=== PATIENT | female | born 1945 | race Caucasian/White ===

== ENCOUNTER 2016-04-12 11:21 | Day surgery (SDC) | payer MEDICARE, OTHER ==
--- NOTE | 2016-04-10 16:09 | HP ---
DATE OF SURGERY: 04/12/2016 HISTORY OF PRESENT ILLNESS: The patient is a 70 year-old last colonoscopy 18 years ago. No bloody stools. She had some pain all over, nausea four weeks ago and now better. Family history mother had colon cancer. PAST MEDICAL HISTORY: She denies any chronic illnesses. PAST SURGICAL HISTORY: Tonsillectomy. Cholecystectomy. MEDICATIONS: Supplements otherwise no other regular medication. ALLERGIES: NKDA. FAMILY HISTORY: Mother had colon cancer, heart disease. SOCIAL HISTORY: No smoking or alcohol abuse. REVIEW OF SYSTEMS: Ten systems reviewed. No chest pain or palpitations other systems negative or noncontributory as above and per preadmission questionnaire. PHYSICAL EXAMINATION: GENERAL: No acute distress. HEENT: Sclerae nonicteric. NECK: No JVD. CHEST: Equal excursion, nonlabored breathing. CVS: Regular rate and rhythm. ABDOMEN: Soft, nontender. No peritoneal signs. EXTREMITIES: No significant edema. NEURO: Alert, moving extremities symmetrically. No gross motor deficits noted. RECTAL: Deferred timed to endoscopy exam. IMPRESSION: Need for follow up screening colonoscopy. I feel she is a candidate. She was shown the risk sheet, explained the procedure in detail but not limited to bleeding or infection, small risk of bowel injury or perforation possibly requiring open procedure, small risk of missed or nondiagnosis or incomplete exam possibly requiring barium enema, other studies or procedures, general risk of anesthesia or sedation, risk of bowel prep, postoperative risk of nausea, vomiting or cramping but not limited to. She understands and agrees to the planned procedure and will proceed with outpatient screening colonoscopy.
[~2016-04-12 11:21] MED LIST: DIPRIVAN 200 MG/20 ML IV ONE; Lactated Ringers 1,000 ML IV ONE; Lactated Ringers 1,000 ML IV SCH; SUBLIMAZE 100 MCG/2 ML IV ONE; Versed 2 MG/2 ML Injection IV ONE
[2016-04-12 14:25] VITALS: O2SAT 95
[2016-04-12 14:55] VITALS: BP 151/78; PULSE 61
--- NOTE | 2016-04-13 08:43 | OP ---
SURGERY DATE/TIME: 04/12/2016 1319 PREOPERATIVE DIAGNOSIS: Need for screening colonoscopy, last colonoscopy 18 years ago. Family history of colon cancer. POSTOPERATIVE DIAGNOSES: 1) Very, very tortuous colon. 2) Somewhat poor prep in areas. 3) Small internal and external hemorrhoids. 4) Few diverticula. PROCEDURE: Colonoscopy to cecum. SURGEON: Dr. Wilbert Paul. ANESTHESIA: MAC. ESTIMATED BLOOD LOSS: Minimal. INDICATIONS: As noted above. Risks and benefits explained in detail but not limited to and consent obtained. DESCRIPTION OF PROCEDURE AND FINDINGS: The patient is taken to the endoscopy room. She did not have any further questions. MAC anesthesia induced. After official time out and no disagreement with the planned procedure, a digital rectal exam did not reveal any rectal masses. She did have some small internal and external hemorrhoids. Video colonoscope inserted and passed up through the somewhat poorly prepped colon with areas of liquidy semi-solid stool in areas. Slowly and carefully position change on her back and requiring two to three people with external pressure on the abdomen. The scope was finally passed down transverse colon and descending colon finally to the cecum. Again the prep did limit the exam for small lesions. Suction irrigated as well as possible but did limit the exam for potential small lesions. The scope slowly and carefully withdrawn. There were no signs of any large polyps, masses or obstructing lesions. She had few diverticula. She had some small internal and external hemorrhoids otherwise no signs of any large polyps, masses or obstructing lesions. Again the prep did limit the exam. Given her family history of colon cancer I recommend follow up colonoscopy in five years unless she has any symptoms.
== END 2016-04-12 14:59 | disposition home or self-care (01) ==
LOC: SDC 11:21
PROVIDERS: ATTEND Surgery
PROC: 0DJD8ZZ Inspection of Lower Intestinal Tract, Via Natural or Artificial Opening Endoscopic (ICD-10-PCS; principal; 2016-04-12)
DX: Z12.11 Encounter for screening for malignant neoplasm of colon (principal); Z80.0 Family history of malignant neoplasm of digestive organs; K64.4 Residual hemorrhoidal skin tags; K64.8 Other hemorrhoids; K57.90 Diverticulosis of intestine, part unspecified, without perforation or abscess without bleeding
CPT/HCPCS: 00810; J2250; J2704; J3010

== ENCOUNTER 2017-10-28 05:30 | Emergency (ER) | payer MEDICARE, OTHER ==
[2017-10-28] MEDS ORDERED: Sodium Chloride 0.9% 1000 ML 1,000 ML IV STA (06:03)
[2017-10-28] MEDS ORDERED: TORAdol 30 mg Injection IV ONE (06:03)
[2017-10-28] MEDS ORDERED: Hydromorphone 1 mg/ml Ampule IV ONE (06:03)
[2017-10-28] MEDS ORDERED: Phenergan 25 MG INJ IV ONE (06:03)
[2017-10-28] MEDS ORDERED: Flomax 0.4 MG PO STA (06:06)
--- NOTE | 2017-10-28 06:07 | ERPHSYRPT ---
- History of Present Illness Time Seen by Provider: 10/28/17 05:59 Historian: patient Exam Limitations: no limitations Patient Subjective Stated Complaint: pt is alert and oriented. pt is ambulatory with a steady gait. pt states that she began have nausea, vomiting, diarrhea at 0000. pt states that she had upper abdomenal pain last night and began vomiting at 0000 today. she then stopped around 0200 and began having abd pain on her LLQ in her lower back on the left side. bowel sounds present x4. abd soft, tender with palpatation. pt took imodium and phenergan at 0200 Triage Nursing Assessment: see above Physician History: The patient is a 71-year-old female with her complaining of left flank and left lower quadrant abdominal pain that began about 5 hours ago. She is been nauseated, vomited, and has diarrhea. She denies fever or chills. Her past medical history is significant for diverticulitis and kidney stones. Timing/Duration: today, hour(s) (5), sudden, worse Activities at Onset: none Quality: sharpness Abdominal Pain Onset Location: LLQ Pain Radiation: flank (left) Severity of Pain-Max: severe Severity of Pain-Current: severe Modifying Factors: Improves With: nothing Associated Symptoms: nausea, vomiting Previous symptoms: same symptoms as today Allergies/Adverse Reactions: No Known Drug Allergies Allergy (Verified 04/12/16 11:41) Home Medications: Cider Vinegar [Apple Cider Vinegar] 500 mg PO DAILY 04/06/16 [History] Enzymes,Digestive [Digestive Enzymes] 2 tab PO DAILY 04/06/16 [History] Ibuprofen 200 mg [Motrin 200 mg] 200 mg PO HS 04/06/16 [History] Multivitamin [Multi-Vitamin Daily] 1 ea PO DAILY 04/06/16 [History] Hx Tetanus, Diphtheria Vaccination/Date Given: No Hx Influenza Vaccination/Date Given: No Hx Pneumococcal Vaccination/Date Given: No Immunizations Up to Date: Yes - Review of Systems Constitutional: No Fever, No Chills Eyes: No Symptoms Ears, Nose, & Throat: No Symptoms Respiratory: No Cough, No Dyspnea Cardiac: No Chest Pain, No Edema, No Syncope Abdominal/Gastrointestinal: Abdominal Pain, Nausea, Vomiting, Diarrhea Genitourinary Symptoms: No Dysuria Musculoskeletal: No Back Pain, No Neck Pain Skin: No Rash Neurological: No Dizziness, No Focal Weakness, No Sensory Changes Psychological: No Symptoms Endocrine: No Symptoms Hematologic/Lymphatic: No Symptoms Immunological/Allergic: No Symptoms All Other Systems: Reviewed and Negative - Past Medical History Pertinent Past Medical History: Yes Neurological History: No Pertinent History ENT History: No Pertinent History Cardiac History: No Pertinent History Respiratory History: No Pertinent History Endocrine Medical History: No Pertinent History Musculoskeletal History: No Pertinent History GI Medical History: Diverticulitis History: Other Psycho-Social History: No Pertinent History Female Reproductive Disorders: No Pertinent History Other Medical History: kidney stones - Past Surgical History Past Surgical History: Yes Neuro Surgical History: No Pertinent History Cardiac: No Pertinent History Respiratory: No Pertinent History Gastrointestinal: Cholecystectomy Genitourinary: No Pertinent History Musculoskeletal: No Pertinent History Female Surgical History: No Pertinent History - Social History Smoking Status: Never smoker Exposure to second hand smoke: No Drug Use: none Patient Lives Alone: No - Female History Hx Now: No - Nursing Vital Signs Nursing Vital Signs: Initial Vital Signs Temperature 97.9 F 10/28/17 05:31 Pulse Rate 77 10/28/17 05:31 Respiratory Rate 22 10/28/17 05:31 Blood Pressure 134/85 10/28/17 05:31 O2 Sat by Pulse Oximetry 100 10/28/17 05:31 Pain Scale Pain Intensity 10 - Physical Exam General Appearance: moderate distress Eye Exam: PERRL/EOMI, eyes nml inspection Ears, Nose, Throat Exam: normal ENT inspection, pharynx normal, moist mucous membranes Neck Exam: normal inspection, non-tender, supple, full range of motion Respiratory Exam: normal breath sounds, lungs clear, No respiratory distress Cardiovascular Exam: regular rate/rhythm, normal heart sounds Gastrointestinal/Abdomen Exam: tenderness (LLQ) Pelvic Exam: not done Rectal Exam: not done Back Exam: normal inspection, normal range of motion, No CVA tenderness, No vertebral tenderness Extremity Exam: normal inspection, normal range of motion, pelvis stable Neurologic Exam: alert, oriented x 3, cooperative, normal mood/affect, nml cerebellar function, sensation nml, No motor deficits Skin Exam: normal color, warm, dry SpO2 Interpretation: normal SpO2: 100 Oxygen Delivery: Room Air - CT Exams Abdomen/Pelvis CT Interpretation: Other (3 x 5 mm calculus in left mid ureter with moderate hydronephrosis interpreted by me.) Ordered Tests: Active Orders 24 hr Category Date Time Status Clean Catch Urine Specimen STAT Care 10/28/17 06:03 Active IV Insertion STAT Care 10/28/17 06:03 Active ABDOMEN AND PELVIS W/0 CONTRAS [CT] Stat Exams 10/28/17 06:31 Taken CBC W DIFF Stat Lab 10/28/17 06:00 Completed CMP Stat Lab 10/28/17 06:00 Completed LIPASE Stat Lab 10/28/17 06:00 Completed Lactic Acid Stat Lab 10/28/17 06:03 Ordered Manual Differential NC Stat Lab 10/28/17 06:00 Completed UA W/RFX UR CULTURE Stat Lab 10/28/17 06:03 Uncollected Medication Summary Generic Name Dose Route Start Last Admin Trade Name Freq PRN Reason Stop Dose Admin Sodium Chloride 1,000 mls @ 999 mls/hr 10/28/17 06:03 10/28/17 06:28 Sodium Chloride 0.9% 1000 Ml IV 10/28/17 07:03 999 mls/hr .Q1H1M STA Administration Discontinued Medications Generic Name Dose Route Start Last Admin Trade Name Freq PRN Reason Stop Dose Admin Hydromorphone HCl 1 mg 10/28/17 06:03 10/28/17 06:27 Hydromorphone 1 Mg/Ml Ampule IV 10/28/17 06:04 1 mg STAT ONE Administration Hydromorphone HCl Confirm 10/28/17 06:10 Hydromorphone 1 Mg/Ml Ampule Administered 10/28/17 06:11 Dose 1 mg .ROUTE .STK-MED ONE Sodium Chloride Confirm 10/28/17 06:10 Sodium Chloride 0.9% 1000 Ml Administered 10/28/17 06:11 Dose 1,000 mls @ ud .ROUTE .STK-MED ONE Ketorolac Tromethamine 30 mg 10/28/17 06:03 10/28/17 06:27 Toradol 30 Mg Injection IV 10/28/17 06:04 30 mg STAT ONE Administration Ketorolac Tromethamine Confirm 10/28/17 06:10 Toradol 30 Mg Injection Administered 10/28/17 06:11 Dose 30 mg .ROUTE .STK-MED ONE Promethazine HCl 25 mg 10/28/17 06:03 10/28/17 06:27 Phenergan 25 Mg Inj IV 10/28/17 06:04 25 mg STAT ONE Administration Promethazine HCl Confirm 10/28/17 06:10 Phenergan 25 Mg Inj Administered 10/28/17 06:11 Dose 25 mg .ROUTE .STK-MED ONE Tamsulosin HCl 0.4 mg 10/28/17 06:06 10/28/17 06:28 Flomax 0.4 Mg PO 10/28/17 06:07 0.4 mg DAILY STA Administration Tamsulosin HCl Confirm 10/28/17 06:10 Flomax 0.4 Mg Administered 10/28/17 06:11 Dose 0.4 mg .ROUTE .STK-MED ONE Lab/Rad Data: Laboratory Result Diagrams 10/28/17 06:00 10/28/17 06:00 Laboratory Results 10/28/17 10/28/17 Range/Units 06:00 06:00 WBC 13.9 H (4.0-10.5) K/mm3 RBC 5.05 (4.1-5.4) M/mm3 Hgb 15.7 (12.0-16.0) gm/dl Hct 47.1 H (35-47) % MCV 93.3 (78-100) fl MCH 31.1 (26-32) pg MCHC 33.3 (32-36) g/dl RDW 13.3 (11.5-14.0) % Plt Count 223 (150-450) K/mm3 MPV 11.0 H (6-9.5) fl Segmented Neutrophils 80 H (36.0-66.0) % Band Neutrophils 6 H (0.0-2.0) % Lymphocytes (Manual) 9 L (24-44) % Monocytes (Manual) 3 (0.0-12.0) % Eosinophils (Manual) 1 (0.00-3.0) % Basophils (Manual) 1 (0.0-1.0) % Platelet Estimate NORMAL (NORMAL) RBC Morphology NORMAL Sodium 143 (137-145) mmol/L Potassium 4.2 (3.5-5.1) mmol/L Chloride 105 (98-107) mmol/L Carbon Dioxide 26 (22-30) mmol/L Anion Gap 15.5 H (5-15) MEQ/L BUN 28 H (7-17) mg/dL Creatinine 0.85 (0.52-1.04) mg/dL Estimated GFR > 60.0 ML/MIN Glucose 148 H (74-106) mg/dL Calcium 10.2 (8.4-10.2) mg/dL Total Bilirubin 0.50 (0.2-1.3) mg/dL AST 33 (14-36) U/L ALT 27 (0-35) U/L Alkaline Phosphatase 90 (38-126) U/L Serum Total Protein 7.3 (6.3-8.2) g/dL Albumin 4.5 (3.5-5.0) g/dL Lipase 45 (23-300) U/L - Progress Progress: improved Counseled pt/family regarding: diagnosis, need for follow-up, rad results - Departure Time of Disposition: 07:01 Departure Disposition: Home Clinical Impression: Ureterolithiasis Condition: Stable Critical Care Time: No Referrals: ALNO DAWKINS [Primary Care Provider] - Additional Instructions: You have a kidney stone that you are passing. The CT scan showed it was midway between your left kidney and the bladder. You were given Flomax 0.4 mg orally and Dilaudid 1 mg, Phenergan 25 mg, and fluids by IV in the ER. Take Kent one tablet every 4-6 hours as needed for pain. Stay well hydrated. Strain your urine to collect the stone. Follow-up with your primary medical doctor after he collect the stone or earlier if needed. Prescriptions: Hydrocodone/APAP 5/325 [Kent 5/325 mg] 1 each PO Q4-6HPRN PRN #12 tablet MDD 6 PRN Reason: Pain
[2017-10-28] MEDS ORDERED: TORAdol 30 mg Injection ONE (06:10)
[2017-10-28] MEDS ORDERED: Phenergan 25 MG INJ ONE (06:10)
[2017-10-28] MEDS ORDERED: Hydromorphone 1 mg/ml Ampule ONE (06:10)
[2017-10-28] MEDS ORDERED: Flomax 0.4 MG ONE (06:10)
[2017-10-28] MEDS ORDERED: Sodium Chloride 0.9% 1000 ML 1,000 ML ONE (06:10)
[2017-10-28 06:30] LABS: Hematocrit 47.1 % (35-47); Hemoglobin 15.7 gm/dl (12.0-16.0); Mean Cell Volume 93.3 fl (78-100); Mean Corpuscular Hemoglobin 31.1 pg (26-32); Mean Corpuscular Hgb Concent. 33.3 g/dl (32-36); Platelet Count 223 K/mm3 (150-450); Red Blood Count 5.05 M/mm3 (4.1-5.4); Red Cell Distribution Width 13.3 % (11.5-14.0); White Blood Count 13.9 K/mm3 (4.0-10.5)
[2017-10-28 06:38] LABS: ALBUMIN 4.5 g/dL (3.5-5.0); ALKALINE PHOSPHATASE 90 U/L (38-126); ANION GAP 15.5 MEQ/L (5-15); BLOOD UREA NITROGEN 28 mg/dL (7-17); CHLORIDE 105 mmol/L (98-107); Calcium 10.2 mg/dL (8.4-10.2); Carbon Dioxide 26 mmol/L (22-30); Creatinine 1 0.85 mg/dL (0.52-1.04); Glucose 148 mg/dL (74-106); LIPASE 45 U/L (23-300); Potassium 4.2 mmol/L (3.5-5.1); SGOT/AST 33 U/L (14-36); SGPT/ALT 27 U/L (0-35); SODIUM 143 mmol/L (137-145); Total Protein 7.3 g/dL (6.3-8.2)
[2017-10-28 06:54] LABS: BAND 6 % (0.0-2.0); Basophil 1 % (0.0-1.0); Eosinophil 1 % (0.00-3.0); Lymphocytes 9 % (24-44); Monocyte 3 % (0.0-12.0); Neutrophils 80 % (36.0-66.0); Platelet Estimate NORMAL (NORMAL); Total Cells Counted 100
[2017-10-28 08:03] VITALS: BP 117/72; PULSE 74; O2SAT 98
--- NOTE | 2017-10-28 16:31 | XRAY ---
Exam: CT of the abdomen and pelvis without IV contrast from 10/28/2017. CTDI: 11.76 Comparison: CT of the abdomen and pelvis without IV contrast from 07/12/2006. Indication: 71-year-old female with history of left lower quadrant abdominal pain, nausea/vomiting, diarrhea; history of diverticulitis and kidney stones. Technique: Non-IV contrast axial images were obtained through the abdomen and pelvis. Reconstructed coronal and sagittal images were created and reviewed. 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 The patient appears to be turned slightly toward the right at the level of the pelvis. Some small granulomatous calcifications are seen within the subcarinal region and right infrahilar projection. There are also several tiny nodules within the posterior right lung base. 3 of these are calcified and a tiny 2.5 mm nodule at the posterior medial right lung base on axial image #10 is noncalcified. I still believe it is likely this latter tiny nodule represents a small granuloma. No active lung disease is seen at the lung bases. There is a minimal hiatal hernia present. Assessment of the solid organs is limited without the use of IV contrast. The liver appears unremarkable. The gallbladder is either surgically absent or contracted. No suspicious calcifications are seen within the subhepatic space. Minimal high attenuation density is seen in the junction of the stomach and duodenum, likely representing medication. The spleen is of normal size and reveals some scattered small calcified granulomas. No splenic mass is seen. The pancreas appears of unremarkable size and attenuation. The distal common bile duct measures up to 10.5 mm in diameter which is unchanged from 07/12/2006. This is likely due to prior cholecystectomy. Correlate with surgical history. The adrenal glands appear unremarkable. The right kidney appears unremarkable. Left kidney appears slightly swollen with some mild hydronephrosis and proximal left hydroureter down to the level of a stone measuring about 4 mm in diameter on axial image #49 of series #3. The stone is actually seen on axial images #48 through #50. This stone measures about 6.2 mm in craniocaudal dimension on coronal image #46. No other stones are seen within the ureters. Vascular calcification is seen within the abdominal aorta and proximal common iliac arteries. No abdominal aortic aneurysm or abnormal retroperitoneal lymphadenopathy is seen. There is no free intraperitoneal air. No ventral abdominal wall hernia is seen. The appendix is not identified. I see no findings to suggest appendicitis within the right lower quadrant. Correlate with surgical history. On axial images #49 and #50 there is an 8 mm in diameter calcification measuring +279 Hounsfield units which likely represents a fecalith or pill/capsule. The bowel is not distended. Mild sigmoid colon diverticulosis without evidence of diverticulitis is seen. There is abundant intraperitoneal fat. No enlarged pelvic lymph nodes or free fluid is seen. The uterus appears mildly retroflexed. No adnexal pelvic masses are seen. The urinary bladder is partially distended and reveals no stones within it. The deep pelvic sidewalls within the lower pelvis appear unremarkable. The femoral regions reveal some small reactive lymph nodes. Skeleton reveals no acute fracture or aggressive bone lesion. Mild facet joint arthropathy is seen on the right at L4-L5 and at L5-S1 bilaterally. Impression: 1. There is a 6.2 mm in craniocaudal dimension by 4 mm in width stone within the mid left ureter barely below the level of the left superior iliac crest. See axial image #49 series #8. This is causing mild asymmetric left hydronephrosis and proximal hydroureter. 2. Neither the gallbladder or appendix are definitely seen. Correlate with surgical history regarding prior cholecystectomy and appendectomy. 3. 8mm calcification within lumen of distal small bowel within the upper right hemipelvis. This may represent a fecalith or perhaps a pill/capsule density. 4. Old healed granulomatous disease and minimal hiatal hernia are seen. 5. Mild sigmoid colon diverticulosis without evidence of diverticulitis. 6. No other acute process is seen within the abdomen or pelvis.
== END 2017-10-28 07:50 | disposition home or self-care (01) ==
LOC: ED 05:30
DX: N20.1 Calculus of ureter (principal)
CPT/HCPCS: 36000; 36415; 74176; 80053; 83605; 83690; 85025; 96360; 96374; 96375; 99284; J1170; J1885; J2550; A9270-GY